=== PATIENT | female | born 1970 | race African-American/Black ===

== ENCOUNTER 2017-04-14 21:33 | Emergency (ER) | payer OTHER ==
[2017-04-14 22:06] VITALS: BP 104/64; PULSE 93; TEMP 98.1
[2017-04-14] MEDS ORDERED: CYCLOBENZAPRINE HCL 10 MG TABLET (FP) PO ONE (22:53)
[2017-04-14] MEDS ORDERED: NAPROXEN 500 MG TABLET (FP) PO ONE (22:53)
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
[2017-04-14] MEDS ORDERED: NAPROXEN 500 MG TABLET (FP) ONE (23:01)
[2017-04-14] MEDS ORDERED: CYCLOBENZAPRINE HCL 10 MG TABLET (FP) ONE (23:02)
== END 2017-04-14 23:14 | disposition home or self-care (01) ==
LOC: JERFT 21:33
DX: S13.4XXA Sprain of ligaments of cervical spine, initial encounter (principal); V43.52XA Car driver injured in collision with other type car in traffic accident, initial encounter; Y92.414 Local residential or business street as the place of occurrence of the external cause; Y93.89 Activity, other specified; Y99.8 Other external cause status; J45.909 Unspecified asthma, uncomplicated; E11.9 Type 2 diabetes mellitus without complications; Z79.84 Long term (current) use of oral hypoglycemic drugs; Z85.3 Personal history of malignant neoplasm of breast
CPT/HCPCS: 99281-25